=== PATIENT | male | born 1945 ===

== ENCOUNTER 2022-11-13 16:31 | Observation (INO) | payer MEDICARE, SELFPAY ==
[~2022-11-13] VITALS: Ht 167.6 cm; Wt 55.8 kg
[2022-11-13] MEDS ORDERED: MAALOX 30 ML SUSP *UDC PO PRN (17:55)
[2022-11-13] MEDS ORDERED: ACETAMINOPHEN TAB 650MG DOSE (2X325MG) PO PRN (17:55)
[2022-11-13] MEDS ORDERED: MOM 30ML SUSPENSION UDC PO PRN (17:55)
[2022-11-13 18:00] VITALS: BP 176/76
[2022-11-13] MEDS ORDERED: GLUCAGON INJ 1MG VIAL SC PRN (18:40)
[2022-11-13] MEDS ORDERED: GLUCOSE 4GM CHEW TABLET PO PRN (18:40)
[2022-11-13] MEDS ORDERED: DEXTROSE 50% 50ML SYRINGE IV PRN (18:40)
[2022-11-13] MEDS ORDERED: RAPA8CAP4 PO (19:39)
[2022-11-13] MEDS ORDERED: LABE100T71 PO (19:39)
[2022-11-13] MEDS ORDERED: ALLO100T PO (19:39)
[2022-11-13] MEDS ORDERED: FOLI1TAB11 PO (19:39)
[2022-11-13] MEDS ORDERED: FINA5TAB2 PO (19:39)
[2022-11-13] MEDS ORDERED: JARD1TAB PO (19:39)
[2022-11-13] MEDS ORDERED: CALCCAP4 PO (19:39)
[2022-11-13] MEDS ORDERED: THERTAB52 PO (19:39)
[2022-11-13] MEDS ORDERED: CYCLO25CA PO (19:39)
[2022-11-13] MEDS ORDERED: ATOR1TAB21 PO (19:39)
[2022-11-13] MEDS ORDERED: DICY20TA20 PO (19:39)
[2022-11-13] MEDS ORDERED: URSO300C3 PO (19:39)
[2022-11-13] MEDS ORDERED: PRED5TA PO (19:39)
[2022-11-13] MEDS ORDERED: AMLO25TA PO (19:39)
[2022-11-13] MEDS ORDERED: HOME MED LIST COMPLETE! XX SCH (19:40)
[2022-11-13 20:00] VITALS: BP 164/84
[2022-11-13] MEDS ORDERED: DICYCLOMINE 10 MG CAP PO SCH (21:00)
[2022-11-13] MEDS ORDERED: FINASTERIDE 5MG TAB PO SCH (21:00)
[2022-11-13] MEDS ORDERED: ursodioL 300MG CAP PO SCH (21:00)
[2022-11-13] MEDS ORDERED: predniSONE 5 MG TAB PO SCH (21:00)
[2022-11-13] MEDS ORDERED: ATORVASTATIN 20 MG TAB PO SCH (21:00)
[2022-11-13] MEDS ORDERED: INSULIN LISPRO (NovoLOG) PER UNIT SC SCH (21:00)
[2022-11-13] MEDS ORDERED: NEORAL 25 MG PO SCH (21:00)
[2022-11-13] MEDS: DOCUSATE SODIUM 100MG CAPSULE PO SCH ×2 (21:00→21:37)
[2022-11-13 21:37] VITALS: BP 180/78
[2022-11-13] MEDS ORDERED: NEORAL 25 MG PO ONE (22:00)
[2022-11-13 22:13] LABS: BASO % 0.5 % (0.0-1.0); EOS % 0.9 % (0.0-3.0); HEMATOCRIT 33.7 % (42.0-52.0); HEMOGLOBIN 10.9 g/dl (13.5-17.5); LYMPH # 1.6 10^3/uL (1.5-5.0); LYMPH % 36.1 % (24.0-44.0); MEAN CORPUSCULAR HEMOGLOBIN 31.2 pg (27.0-33.0); MEAN CORPUSCULAR HGB CONC 32.3 g/dl (32.0-36.5); MEAN CORPUSCULAR VOLUME 96.6 fl (80.0-96.0); MONO # 0.3 10^3/uL (0.0-0.8); MONO % 7.5 % (2.0-8.0); NEUTROPHILS # 2.4 10^3/uL (1.5-8.5); NEUTROPHILS % 54.5 % (36.0-66.0); RED BLOOD COUNT 3.49 10^6/uL (4.30-6.10); WHITE BLOOD COUNT 4.4 10^3/uL (4.0-10.0)
[2022-11-13 22:34] LABS: ALBUMIN 3.4 G/DL (3.2-5.2); BILIRUBIN,TOTAL 1.1 MG/DL (0.3-1.2); CALCIUM LEVEL 8.7 MG/DL (8.3-10.6); CREATININE FOR GFR 1.89 MG/DL (0.70-1.30); GLOMERULAR FILTRATION RATE 37.2 (>42); TOTAL PROTEIN 5.9 G/DL (5.7-8.2)
[2022-11-13 22:47] LABS: PLATELET COUNT, AUTOMATED 87 10^3/uL (150-450)
[2022-11-14] VITALS: BP 150/76
[2022-11-14] MEDS ORDERED: LABETALOL 100MG/20ML VIAL IV PRN (00:05)
[2022-11-14 01:55] VITALS: BP 158/76
[2022-11-14] MEDS ORDERED: INSULIN LISPRO (NovoLOG) PER UNIT SC SCH (07:30)
[2022-11-14] MEDS ORDERED: allopurinoL 100 MG TAB PO SCH (09:00)
[2022-11-14] MEDS ORDERED: MULTIVITAMINS/MINERALS THERAP 1 TAB PO SCH (09:00)
[2022-11-14] MEDS ORDERED: FOLIC ACID 1MG TAB PO SCH (09:00)
[2022-11-14] MEDS ORDERED: NEORAL 25 MG PO SCH (09:00)
[2022-11-14] MEDS ORDERED: ASPIRIN 81MG ENTERIC TABLET PO SCH (09:00)
== END 2022-11-14 01:59 | disposition short-term general hospital (02) ==
LOC: ENRESERV 16:33 → M PCU 17:43
PROVIDERS: ADMIT Internal Medicine; ATTEND Internal Medicine
DX: I63.311 Cerebral infarction due to thrombosis of right middle cerebral artery (principal); I10 Essential (primary) hypertension; E11.9 Type 2 diabetes mellitus without complications; E78.5 Hyperlipidemia, unspecified; D69.6 Thrombocytopenia, unspecified; K21.9 Gastro-esophageal reflux disease without esophagitis; M10.9 Gout, unspecified; Z79.52 Long term (current) use of systemic steroids; Z79.899 Other long term (current) drug therapy; Z88.2 Allergy status to sulfonamides; Z88.8 Allergy status to other drugs, medicaments and biological substances; Z88.1 Allergy status to other antibiotic agents; Z94.4 Liver transplant status; Z89.211 Acquired absence of right upper limb below elbow
CPT/HCPCS: 36415; 70450; 70544; 70551; 80053; 85025; 85049; 85055; 87635; 93880; G0378; J7512; J7515